=== PATIENT | male | born 1980 | race Caucasian/White ===

== ENCOUNTER 2016-12-26 08:57 | Inpatient (IN) | payer OTHER ==
[2016-12-26 10:55] VITALS: BMI 28.3
--- NOTE | 2016-12-26 14:47 | HP ---
Admission [facility] Chief Complaint: i am kraig for rehab from alcohol,marijuana Allergies/Adverse Reactions: Allergies Allergy/AdvReac Type Severity Reaction Status Date / Time No Known Allergies Allergy Verified 12/26/16 12:05 History of Present Illness: this 36 years old male with alcohol and marijuana dependence,seeking rehab,last detox 2 weeks ago last seizure 2017 nicotine dependence longest period of bobriety 4 months Exam Limitations: No Limitations - Ebola screening Have you traveled outside of the country in the last 21 days: No Have you been sick,other than usual withdrawal symptoms: No - Review of Systems Constitutional: No Symptoms Reported EENT: reports: No Symptoms Reported Respiratory: reports: No Symptoms reported Cardiac: reports: No Symptoms Reported GI: reports: No Symptoms Reported : reports: No Symptoms Reported Musculoskeletal: reports: No Symptoms Reported Integumentary: reports: No Symptoms Reported Neuro: reports: No Symptoms reported Endocrine: reports: No Symptoms Reported Hematology: reports: No Symptoms Reported Psychiatric: reports: No Sypmtoms Reported Patient History - Patient Medical History Hx Anemia: No Hx Asthma: No Hx Chronic Obstructive Pulmonary Disease (COPD): No Hx Cancer: No Hx Cardiac Disorders: No Hx Congestive Heart Failure: No Hx Hypertension: No Hx Hypercholesterolemia: No Hx Pacemaker: No HX Cerebrovascular Accident: No Hx Seizures: Yes (last 2015) Hx Dementia: No Hx Diabetes: No Hx Gastrointestinal Disorders: No Hx Liver Disease: No Hx Sexually Transmitted Disorders: No Hx Renal Disease (ESRD): No Hx Thyroid Disease: No Hx Human Immunodeficiency Virus (HIV): No (last 2016 negative) Hx Hepatitis C: No Hx Depression: No Hx Suicide Attempt: No Hx Bipolar Disorder: No Hx Schizophrenia: No Other Medical History: no suicidal,no homicidal - Patient Surgical History Past Surgical History: No - PPD History Previous Implant?: Yes Documented Results: Negative w/o proof Implanted On Prior [facility] Admission?: No PPD to be Administered?: Yes - Smoking Cessation Smoking history: Current every day smoker Have you smoked in the past 12 months: Yes Aproximately how many cigarettes per day: 20 If you are a former smoker, when did you quit?: 0 Cigars Per Day: 0 Hx Chewing Tobacco Use: No Initiated information on smoking cessation: Yes 'Breaking Loose' booklet given: 12/26/16 - Substance & Tx. History Hx Alcohol Use: Yes Hx Substance Use: Yes Substance Use Type: Alcohol, Marijuana - Substances Abused Alcohol Route: Oral Frequency: Daily Amount used: 2 of 6 packs of 12 ozs of beer Age of first use: 17 Date of Last Use: 12/26/16 Marijuana/Hashish Route: Smoking Frequency: Daily Amount used: 10$ Age of first use: 18 Date of Last Use: 12/26/16 Family Disease History - Family Disease History Family History: Denies Admission Physical Exam [facility] - Vital Signs Vital Signs: Vital Signs - 24 hr 12/26/16 10:52 Temperature 96.7 F L Pulse Rate 84 Respiratory 20 Rate Blood Pressure 131/73 - Physical General Appearance: Yes: Within Normal Limits HEENTM: Yes: Normal ENT Inspection, SHAN[place], Pharynx Normal, Other (scar left facial area) Respiratory: Yes: Lungs Clear, Normal Breath Sounds, No Respiratory Distress Neck: Yes: Within Normal Limits, Supple, Trachea in good position Breast: Yes: Within Normal Limits Cardiology: Yes: Within Normal Limits, Regular Rhythm, Regular Rate, S1, S2 Abdominal: Yes: Within Normal Limits, Normal Bowel Sounds, Non Tender, Flat, Soft Genitourinary: Yes: Within Normal Limits Back: Yes: Within Normal Limits Musculoskeletal: Yes: Within Normal Limits Extremities: Yes: Within Normal Limits Neurological: Yes: 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 intact, Fully Oriented, Alert, Motor Strength 5/5 Integumentary: Yes: Within Normal Limits Lymphatic: Yes: Within Normal Limits - Diagnostic (1) Alcohol dependence Current Visit: Yes Status: Acute (2) Cannabis dependence Current Visit: Yes Status: Acute (3) Nicotine dependence Current Visit: Yes Status: Acute (4) Seizure disorder Current Visit: Yes Status: Acute Cleared for Admission [facility] - Detox or Rehab Claeared for Rehab Admission: Yes [facility] Breath Alcohol Content Breath Alcohol Content: 0.135 Urine Drug Screen - Results Drug Screen Negative: No Urine Drug Screen Results: THC-Marijuana, BZO-Benzodiazepines Inpatient Rehab Admission - Initial Determination Are CD services needed?: Yes Free of communicable disease: Yes Not in need of hospitalization: Yes - Rehab Admission Criteria Comorbidities: Yes Patient is meeting Inpatient Rehab admission criteria:: Yes
[2016-12-26] MEDS ORDERED: hydrOXYzine PAMOATE 50 MG CAPSULE (FP) PO PRN (15:00)
[2016-12-26] MEDS ORDERED: LOPERAMIDE HCL 2 MG CAPSULE PO PRN (15:00)
[2016-12-26] MEDS ORDERED: MAGNESIUM CITRATE 300 ML BOTTLE PO PRN (15:00)
[2016-12-26] MEDS ORDERED: P-EPHED 60MG/TRIPROLIDI 2.5MG TABLET PO PRN (15:00)
[2016-12-26] MEDS ORDERED: guaiFENesin/D-METHORPHAN HB 10 ML UNIT-DOSE CUPS PO PRN (15:00)
[2016-12-26] MEDS ORDERED: IBUPROFEN 400 MG TABLET (FP) PO PRN (15:00)
[2016-12-26] MEDS ORDERED: diphenhydrAMINE HCL 50 MG CAPSULE PO PRN (15:00)
[2016-12-26] MEDS ORDERED: MAG HYDROX/AL HYDROX/SIMETH 30 ML UNIT-DOSE CUP PO PRN (15:00)
[2016-12-26] MEDS ORDERED: ACETAMINOPHEN 325 MG TABLET (FP) PO PRN (15:00)
[2016-12-26] MEDS ORDERED: MENTHOL/PHENOL 1 EACH UD MM PRN (15:00)
[2016-12-26] MEDS ORDERED: MAGNESIUM HYDROX 2400MG/30ML ORAL SUSPENSION 30 ML CUP PO PRN (15:00)
[2016-12-26 16:59] LABS: SICKLE CELL SCREEN NEGATIVE (NEGATIVE)
[2016-12-26 17:01] LABS: MCH 31.9 pg (25.7-33.7); MEAN CELL VOLUME 91.1 fl (80-96); MEAN PLT VOLUME 9.9 fl (7.5-11.1); PLATELET COUNT 255 K/MM3 (134-434); RDW 14.3 % (11.9-15.9); WHITE BLOOD COUNT 7.1 K/mm3 (4.0-10.0)
[2016-12-26 17:12] LABS: ALBUMIN 3.4 g/dl (3.4-5.0); ANION GAP 11 (8-16); CALCIUM 8.3 mg/dL (8.5-10.1); CO2 21 mmol/L (21-32); GLUCOSE,RANDOM 93 mg/dL (74-106)
[2016-12-26 17:16] LABS: ALK PHOS 145 U/L (45-117); BILIRUBIN,TOTAL 0.4 mg/dL (0.2-1.0); CREATININE 0.8 mg/dL (0.7-1.3); TOT PROT 7.1 g/dl (6.4-8.2)
[2016-12-26 17:31] LABS: SGOT/AST 37 U/L (15-37); SGPT/ALT 44 U/L (12-78)
[2016-12-26] MEDS ORDERED: levETIRAcetam 500 MG TABLET (FP) PO ONE (20:18)
[2016-12-26] MEDS: TOPIRAMATE 100 MG TABLET PO SCH (21:17)
[2016-12-26] MEDS: levETIRAcetam 250 MG TABLET (FP) PO SCH (21:17)
[2016-12-26] MEDS: THIAMINE HCL 100 MG TABLET (FP) PO SCH (21:17)
[2016-12-27] MEDS ORDERED: TUBERCULIN PPD 5 TU/0.1ML VIAL ID ONE (07:42)
[2016-12-27] MEDS: TOPIRAMATE 100 MG TABLET PO SCH ×2 (10:07→21:13)
[2016-12-27] MEDS: PRENATAL VITAMINS W/ FOLIC ACID TABLET (FP) PO SCH (10:07)
[2016-12-27] MEDS: NICOTINE 21 MG/24 HOURS TOPICAL PATCH TD SCH (10:08)
[2016-12-27] MEDS: levETIRAcetam 250 MG TABLET (FP) PO SCH ×2 (10:08→21:13)
[2016-12-27] MEDS ORDERED: PNEUMOCOCCAL 23 VACCINE 0.5 ML VIAL IM ONE (12:00)
[2016-12-27 14:13] LABS: URINE APPEARANCE CLEAR; URINE BILIRUBIN NEGATIVE (NEGATIVE); URINE BLOOD NEGATIVE (NEGATIVE); URINE COLOR LTYELLOW; URINE GLUCOSE (UA) NEGATIVE (NEGATIVE); URINE KETONE NEGATIVE (NEGATIVE); URINE LEUK ESTERASE NEGATIVE (NEGATIVE); URINE NITRITE NEGATIVE (NEGATIVE); URINE PROTEIN NEGATIVE (NEGATIVE); URINE UROBILINOGEN NEGATIVE mg/dL (0.2-1.0)
[2016-12-27] MEDS: THIAMINE HCL 100 MG TABLET (FP) PO SCH (21:13)
--- NOTE | 2016-12-27 22:29 | EKG ---
Test Reason : Blood Pressure : / mmHG Vent. Rate : 058 BPM Atrial Rate : 058 BPM P-R Int : 148 ms QRS Dur : 088 ms QT Int : 442 ms P-R-T Axes : 069 017 056 degrees QTc Int : 433 ms SINUS BRADYCARDIA OTHERWISE NORMAL ECG NO PREVIOUS ECGS AVAILABLE Confirmed by MIKE PUGH MD ([id number]) on 12/27/2016 10:28:41 PM Referred By: Confirmed By:MIKE PUGH MD
--- NOTE | 2016-12-28 00:26 | PN ---
[facility] Progress Note Note: S-ASKED TO SEE PT FOR UNWITNESSED SEIZURE. PT DENIES ANY INJURIES, FALLS, PAIN STATES "I HAD A SEIZURE WHEN I WAS SLEEPING". O- SEEN LYING IN BED ASLEEP NAD EASILY AROUSEABLE; OOB AMBULATING W/O DIFFICULTY; SLIGHTLY AGITATED A/O X3 NCAT PERRL CV RRR SKIN INTACT EXTREMITIES NO VISIBLE INJURIES Vital Signs - 24 hr 12/27/16 12/28/16 12/28/16 22:59 03:26 06:41 Temperature 97.9 F Pulse Rate 60 56 L Respiratory 16 16 18 Rate Blood Pressure 108/49 121/79 A- UNWITNESSED SEIZURE P- CONT SEIZURE PROTOCOL KEPPRA LEVEL IN AM
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
[2016-12-28] MEDS: PRENATAL VITAMINS W/ FOLIC ACID TABLET (FP) PO SCH (10:04)
[2016-12-28] MEDS: TOPIRAMATE 100 MG TABLET PO SCH ×2 (10:04→21:22)
[2016-12-28] MEDS: levETIRAcetam 250 MG TABLET (FP) PO SCH ×2 (10:04→21:21)
[2016-12-28] MEDS: NICOTINE 21 MG/24 HOURS TOPICAL PATCH TD SCH (10:05)
[2016-12-28] MEDS ORDERED: levETIRAcetam 500 MG TABLET (FP) PO ONE (10:49)
[2016-12-28] MEDS: NAPROXEN 500 MG TABLET (FP) PO SCH ×2 (10:58→21:22)
[2016-12-28] MEDS: PANTOPRAZOLE 40 MG TABLET (FP) PO SCH (10:58)
[2016-12-28] MEDS ORDERED: PNEUMOC 13-VAL CONJ-DIP CRM/PF 0.5 ML DISP.SYRIN IM ONE (12:00)
[2016-12-28] MEDS: GABAPENTIN 100 MG CAPSULE (FP) PO SCH ×2 (14:19→21:22)
[2016-12-28] MEDS: CYCLOBENZAPRINE HCL 5 MG TABLET PO SCH ×2 (14:19→21:21)
[2016-12-28] MEDS: THIAMINE HCL 100 MG TABLET (FP) PO SCH (21:22)
[2016-12-29] MEDS: CYCLOBENZAPRINE HCL 5 MG TABLET PO SCH ×3 (06:30→21:19)
[2016-12-29] MEDS: GABAPENTIN 100 MG CAPSULE (FP) PO SCH (06:31)
[2016-12-29] MEDS: levETIRAcetam 250 MG TABLET (FP) PO SCH ×2 (10:09→21:20)
[2016-12-29] MEDS: TOPIRAMATE 100 MG TABLET PO SCH ×2 (10:09→21:20)
[2016-12-29] MEDS: PANTOPRAZOLE 40 MG TABLET (FP) PO SCH (10:09)
[2016-12-29] MEDS: NAPROXEN 500 MG TABLET (FP) PO SCH ×2 (10:09→21:19)
[2016-12-29] MEDS: PRENATAL VITAMINS W/ FOLIC ACID TABLET (FP) PO SCH (10:09)
[2016-12-29] MEDS: NICOTINE 21 MG/24 HOURS TOPICAL PATCH TD SCH (10:10)
[2016-12-29] MEDS ORDERED: levETIRAcetam 500 MG TABLET (FP) PO ONE (13:55)
[2016-12-29] MEDS ORDERED: GABAPENTIN 100 MG CAPSULE (FP) PO SCH (14:00)
--- NOTE | 2016-12-29 14:00 | PN ---
[facility] Progress Note Note: Patient continues to report seizures interrupting his sleep at night, no improvement with neurontin 100mt tid and loading dose of Keppra given yesterday. Keppra level still pending. NO injuries noted or reported, no seizures witnessed by staff. Patient gives name of physician Dr. Mcgee [phone], needs release signed to contact scar BYRNE at patient request. Patient very upset, histrionic, inapproriate affect and uncooperative with care , not listening when seizures are being discussed. Will increase neurontin to 200mg tid and will give additional keppra dose. Patient reports he will sign all necessary forms.
[2016-12-29] MEDS: THIAMINE HCL 100 MG TABLET (FP) PO SCH (21:20)
[2016-12-30] MEDS: CYCLOBENZAPRINE HCL 5 MG TABLET PO SCH ×2 (06:07→15:13)
[2016-12-30 06:47] VITALS: BP 110/70; PULSE 54; TEMP 97.7
[2016-12-30] MEDS: levETIRAcetam 250 MG TABLET (FP) PO SCH (10:06)
[2016-12-30] MEDS: NICOTINE 21 MG/24 HOURS TOPICAL PATCH TD SCH (10:06)
[2016-12-30] MEDS: TOPIRAMATE 100 MG TABLET PO SCH (10:07)
[2016-12-30] MEDS: PRENATAL VITAMINS W/ FOLIC ACID TABLET (FP) PO SCH (10:07)
[2016-12-30] MEDS: PANTOPRAZOLE 40 MG TABLET (FP) PO SCH (10:07)
[2016-12-30] MEDS: NAPROXEN 500 MG TABLET (FP) PO SCH (10:07)
== END 2016-12-30 15:20 | disposition left against medical advice (07) | DRG 770 ==
LOC: YASAS 08:57 → Y5N 15:25
PROVIDERS: ADMIT Psychiatry & Neurology Psychiatry; ATTEND Psychiatry & Neurology Psychiatry
PROC: HZ42ZZZ Group Counseling for Substance Abuse Treatment, Cognitive-Behavioral (ICD-10-PCS; principal; 2016-12-26)
DX: F10.20 Alcohol dependence, uncomplicated (principal); F12.20 Cannabis dependence, uncomplicated; F17.210 Nicotine dependence, cigarettes, uncomplicated; G40.909 Epilepsy, unspecified, not intractable, without status epilepticus
CPT/HCPCS: 36415; 80053; 81003; 85027; 85660; 86593; 90732; 93005; 93010; G0009